=== PATIENT | male | born 1990 | race Caucasian/White ===

== ENCOUNTER 2022-01-05 01:47 | Emergency (ER) | payer OTHER ==
[2022-01-05] MEDS ORDERED: NAPROXEN250 MG PO (02:13)
== END 2022-01-05 02:21 | disposition home or self-care (01) ==
LOC: ED 01:47
DX: S40.021A Contusion of right upper arm, initial encounter (principal); Z91.030 Bee allergy status; X58.XXXA Exposure to other specified factors, initial encounter; Y93.89 Activity, other specified; Y92.89 Other specified places as the place of occurrence of the external cause; Y99.8 Other external cause status